=== PATIENT | male | born 1945 | race Caucasian/White ===

== ENCOUNTER 2017-02-02 07:49 | Emergency (ER) | payer SELFPAY ==
--- NOTE | 2017-02-02 08:35 | C.PDOC ---
History Of Present Illness 71-year-old male, presents to the emergency department with complaints of right knee pain for the past two days. Pain is dull and aching in nature, worse with walking. patient reports a Hx of chronic pain in same knee for the past several years, but has never had it checked out. States he is taking Advil at home with minimal relief. Denies nausea/vomiting, numbness or weakness. No other complaints at this time. Time Seen by Provider: 02/02/17 08:12 Chief Complaint (Nursing): Lower Extremity Problem/Injury History Per: Patient History/Exam Limitations: no limitations Onset/Duration Of Symptoms: Days Current Symptoms Are (Timing): Still Present Past Medical History Reviewed: Historical Data, Nursing Documentation, Vital Signs Vital Signs: Last Vital Signs Temp 98.3 F 02/02/17 09:07 Pulse 63 02/02/17 09:07 Resp 16 02/02/17 09:07 BP 115/74 02/02/17 09:07 Pulse Ox 95 02/02/17 10:06 - Medical History PMH: HTN, Hypercholesterolemia Surgical History: No Surg Hx Family History: States: No Known Family Hx - Social History Hx Tobacco Use: No Hx Alcohol Use: No Hx Substance Use: No - Immunization History Hx Tetanus Toxoid Vaccination: Yes Hx Influenza Vaccination: Yes Hx Pneumococcal Vaccination: No Review Of Systems Constitutional: Negative for: Fever Cardiovascular: Negative for: Chest Pain Respiratory: Negative for: Shortness of Breath Gastrointestinal: Negative for: Vomiting, Abdominal Pain, Diarrhea Musculoskeletal: Positive for: Other (right knee pain). Negative for: Back Pain Skin: Negative for: Rash Neurological: Negative for: Weakness, Numbness, Headache, Dizziness Physical Exam - Physical Exam Appears: Non-toxic, No Acute Distress Skin: Warm, Dry, No Rash Head: Atraumatic, Normacephalic Eye(s): bilateral: Normal Inspection Nose: Normal Oral Mucosa: Moist Lips: Normal Appearing Neck: Normal ROM Chest: Symmetrical Extremity: Normal ROM, No Pedal Edema, No Calf Tenderness, Other ( Mild tenderness to medial aspect of right knee. No swelling. Normal ROM. ) Pulses: Right Dorsalis Pedis: Normal Neurological/Psych: Oriented x3, Normal Speech Gait: Steady ED Course And Treatment O2 Sat by Pulse Oximetry: 95 Medical Decision Making Medical Decision Making: Impression 71 yo male w/ R knee pain Plan: * XR Knee Reassess and Disposition Right knee xray reviewed showing degenerative disease, no effusion no fracture or dislocation Patient had declined any medication during evaluation Knee brace applied by CP. Patient advised to take NSAID for pain and to follow up with PCP. Disposition Counseled Patient/Family Regarding: Need For Followup, Rx Given - Disposition Referrals: Marshall Gerard MD [Staff Provider] - Disposition: HOME/ ROUTINE Disposition Time: 08:33 Condition: STABLE Additional Instructions: Se guy revisado la radiografa sin presentar ninguna fractura o dislocacin aguda. Aconsejar al michael, hielo y elevar la articulacin. Peck medicamentos para el dolor segn sea necesario, ibuprofeno 600mg cada 8 horas con alimentos para no molestar el estmago. Si el dolor persiste, realice el seguimiento con ortopedia en karlee semana Prescriptions: Naproxen [Naprosyn] 1 tab PO BID PRN #25 tab PRN Reason: Pain Instructions: Knee Pain (ED), Arthralgia (ED) Print Language: TELUGU - POA Present On Arrival: None - Clinical Impression Clinical Impression: Arthralgia of knee, right - Scribe Statement The provider has reviewed the documentation as recorded by the Scribe (Flora Boston) All medical record entries made by the Scribe were at my direction and personally dictated by me. I have reviewed the chart and agree that the record accurately reflects my personal performance of the history, physical exam, medical decision making, and the department course for this patient. I have also personally directed, reviewed, and agree with the discharge instructions and disposition.
[2017-02-02 09:08] VITALS: BP 115/74; PULSE 63; RESP 16; TEMP 98.3
--- NOTE | 2017-02-02 09:10 | RAD ---
PROCEDURE: Right Knee Radiographs. HISTORY: COMPARISON: None available FINDINGS: BONES: No acute displaced fracture. Degenerative changes including osteophyte formation and tenting of the intercondylar notch. Suprapatellar enthesophyte. Ossific/calcific density seen on lateral view at the level the proximal fibula, possibly related to remote injury. JOINTS: No dislocation. Tricompartmental joint space narrowing. JOINT EFFUSION: Small suprapatellar joint effusion. OTHER FINDINGS: None. IMPRESSION: Degenerative changes as above. Small suprapatellar joint effusion. No acute displaced fracture or dislocation identified.If symptoms persist, or if there is continued clinical concern, x-ray follow-up in 7-10 days should be considered.
[2017-02-02 10:05] VITALS: O2SAT 95
== END 2017-02-02 09:10 | disposition home or self-care (01) ==
LOC: C.ER 07:49
DX: M25.561 Pain in right knee (principal)